=== PATIENT | male | born 1980 ===

== ENCOUNTER 2024-04-11 01:32 | Outpatient (CLI) | payer OTHER, SELFPAY | END 2024-04-11 01:33 | disposition home or self-care (01) | LOC: AMB 04-24 05:59 | PROVIDERS: Visit Provider Family Medicine | DX: S09.93XA Unspecified injury of face, initial encounter (principal); W01.0XXA Fall on same level from slipping, tripping and stumbling without subsequent striking against object, initial encounter; Y92.480 Sidewalk as the place of occurrence of the external cause | CPT/HCPCS: A0998 ==